=== PATIENT | male | born 1990 | race African-American/Black ===

== ENCOUNTER 2020-12-17 14:45 | Emergency (ER) | payer BC ==
[~2020-12-17] VITALS: Ht 172.7 cm; Wt 75.0 kg
[2020-12-17] MEDS ORDERED: KETOROLAC 60 MG/2 ML VIAL. IM ONE (16:15)
[2020-12-17] MEDS ORDERED: DEXAMETHASONE SOD PHOS 20 MG/5 ML VIAL. IM ONE (16:15)
--- NOTE | 2020-12-17 17:12 | PHYS DOC ---
Past Medical History Past Medical History: Migraines Past Surgical History: No Surgical History Smoking Status: Never Smoker Alcohol Use: Occasionally General Adult EDM: Chief Complaint: HEADACHE HPI: HPI: Patient is a 30 year old male who present to ER for evaluation of his typical migraine headache. Patient has history of migraine headache, he started having a headache for the last few days. Patient has been taking aspirin but not improved so he came here for evaluation. Patient denies any head injury, no neck pain, no nausea vomiting. Patient denies any fever, no neck stiffness. Patient denies any COVID-19 exposure. The headache is worse with loud noises or bright light. Review of Systems: Review of Systems: Constitutional: Denies fever or chills. [] Eyes: Denies change in visual acuity. [] HENT: Denies nasal congestion or sore throat. [] Respiratory: Denies cough or shortness of breath. [] Cardiovascular: Denies chest pain or edema. [] GI: Denies abdominal pain, nausea, vomiting, bloody stools or diarrhea. [] : Denies dysuria. [] Musculoskeletal: Denies back pain or joint pain. [] Integument: Denies rash. [] Neurologic: Positive headache, no focal weakness or sensory changes. [] Endocrine: Denies polyuria or polydipsia. [] Lymphatic: Denies swollen glands. [] Psychiatric: Denies depression or anxiety. [] Heart Score: C/O Chest Pain: N/A Risk Factors: Risk Factors: DM, Current or recent (<one month) smoker, HTN, HLP, family history of CAD, obesity. Risk Scores: Score 0 - 3: 2.5% MACE over next 6 weeks - Discharge Home Score 4 - 6: 20.3% MACE over next 6 weeks - Admit for Clinical Observation Score 7 - 10: 72.7% MACE over next 6 weeks - Early Invasive Strategies Current Medications: Current Medications Medications (Trade) Dose Ordered Sig/Omar Start Time Stop Time Status Last Admin Dose Admin Dexamethasone Sodium Phosphate (Decadron) 10 mg 1X ONCE 12/17/20 16:15 12/17/20 16:16 DC 12/17/20 16:09 10 MG Ketorolac Tromethamine (Toradol Im) 60 mg 1X ONCE 12/17/20 16:15 12/17/20 16:16 DC 12/17/20 16:09 60 MG Allergies: Allergies: Allergies Coded Allergies Type Severity Reaction Last Updated Verified No Known Drug Allergies 12/17/20 No Physical Exam: PE: Constitutional: Well developed, well nourished, no acute distress, non-toxic appearance. [] HENT: Normocephalic, atraumatic, bilateral external ears normal, oropharynx moist, no oral exudates, nose normal. [] Eyes: PERRLA, EOMI, conjunctiva normal, no discharge. [] Neck: Normal range of motion, no tenderness, supple, no stridor. [] Cardiovascular:Heart rate regular rhythm, no murmur [] Lungs & Thorax: Bilateral breath sounds clear to auscultation [] Abdomen: Bowel sounds normal, soft, no tenderness, no masses, no pulsatile masses. [] Skin: Warm, dry, no erythema, no rash. [] Back: No tenderness, no CVA tenderness. [] Extremities: No tenderness, no cyanosis, no clubbing, ROM intact, no edema. [] Neurologic: Alert and oriented X 3, normal motor function, normal sensory function, no focal deficits noted. [] Psychologic: Affect normal, judgement normal, mood normal. [] Current Patient Data: Vital Signs: Vital Signs Date Time Temp Pulse Resp B/P (MAP) Pulse Ox O2 Delivery O2 Flow Rate FiO2 12/17/20 14:50 98.6 84 16 163/89 (113) 95 Room Air 98.6 EKG: EKG: [] Radiology/Procedures: Radiology/Procedures: [] Course & Med Decision Making: Course & Med Decision Making Pertinent Labs and Imaging studies reviewed. (See chart for details) Patient is a 30-year-old male who present to ER due to headache, patient states this is his typical migraine headache. Patient given medication in the ER, he feels much better. Patient was discharged in stable condition. Dragon Disclaimer: Dragon Disclaimer: This electronic medical record was generated, in whole or in part, using a voice recognition dictation system. Departure Departure Impression: Primary Impression: Headache Disposition: 01 HOME / SELF CARE / HOMELESS Condition: IMPROVED Referrals: NO PCP (PCP) Follow up with your doctor next week. Patient Instructions: General Headache Without Cause Additional Instructions: Thank you for visiting our Emergency Department. We appreciate you trusting us with your care. If any additional problems come up don't hesitate to return to visit us. Please follow up with your primary care provider so they can plan additional care if needed and know about the problem that you had. If symptoms worsen come back to the Emergency Department. Any concerning symptoms that start such as chest pain, shortness of air, weakness or numbness on one side of the body, running high fevers or any other concerning symptoms return to the ER. DENIS PRADHAN DO Dec 17, 2020 17:12
[2020-12-17 17:33] VITALS: BP 138/84
== END 2020-12-17 17:33 | disposition home or self-care (01) ==
LOC: ER 14:45
DX: G43.909 Migraine, unspecified, not intractable, without status migrainosus (principal)
CPT/HCPCS: 96372; 99284; J1100; J1885

== ENCOUNTER 2021-02-15 20:08 | Emergency (ER) | payer SELFPAY ==
[~2021-02-15] VITALS: Ht 165.1 cm; Wt 80.0 kg
--- NOTE | 2021-02-15 22:39 | RAD ---
XR CHEST 1V INDICATION: cough . COMPARISON STUDY: None. FINDINGS: Lungs: Normal lung volume. No pulmonary mass or consolidation. The tracheobronchial tree and hilar st ructures are normal. Pleura: No pleural effusion or pneumothorax. Heart and Mediastinum: The cardiomediastinal silhouette is normal. The great vessels of the thorax ar e normal. Bones and Soft Tissues: The bones and soft tissues are within normal limits. IMPRESSION: No acute cardiopulmonary process. Electronically signed by: Konstantin Hutchinson MD (02/15/2021 10:37 PM) [facility]
--- NOTE | 2021-02-15 22:42 | PHYS DOC ---
Past Medical History Past Medical History: Migraines Past Surgical History: No Surgical History Smoking Status: Never Smoker Alcohol Use: None General Adult EDM: Chief Complaint: MULTIPLE COMPLAINTS HPI: HPI: Patient is a 30 year old male who presents to the ED today complaining of cough, nasal congestion, shortness of breath, body aches, symptoms began today. Patient denies any fever. Review of Systems: Review of Systems: Constitutional: Reports body aches. Denies fever or chills. [] Eyes: Denies change in visual acuity. [] HENT: Reports nasal congestion, denies sore throat Respiratory: Reports cough and shortness of breath Cardiovascular: Denies chest pain or edema. [] GI: Denies abdominal pain, nausea, vomiting, bloody stools or diarrhea. [] : Denies dysuria. [] Musculoskeletal: Denies back pain or joint pain. [] Integument: Denies rash. [] Neurologic: Denies headache, focal weakness or sensory changes. [] Psychiatric: Denies depression or anxiety. [] Heart Score: C/O Chest Pain: N/A Risk Factors: Risk Factors: DM, Current or recent (<one month) smoker, HTN, HLP, family history of CAD, obesity. Risk Scores: Score 0 - 3: 2.5% MACE over next 6 weeks - Discharge Home Score 4 - 6: 20.3% MACE over next 6 weeks - Admit for Clinical Observation Score 7 - 10: 72.7% MACE over next 6 weeks - Early Invasive Strategies Allergies: Allergies: Allergies Coded Allergies Type Severity Reaction Last Updated Verified No Known Drug Allergies 12/17/20 No Physical Exam: PE: Constitutional: Well developed, well nourished, no acute distress, non-toxic appearance. [] HENT: Normocephalic, atraumatic, bilateral external ears normal, oropharynx moist, no oral exudates, nose normal. [] Eyes: PERRLA, EOMI, conjunctiva normal, no discharge. [] Neck: Normal range of motion, no tenderness, supple, no stridor. [] Cardiovascular:Heart rate regular rhythm, no murmur [] Lungs & Thorax: Bilateral breath sounds clear to auscultation [] Abdomen: Bowel sounds normal, soft, no tenderness, no masses, no pulsatile masses. [] Skin: Warm, dry, no erythema, no rash. [] Back: No tenderness, no CVA tenderness. [] Extremities: No tenderness, no cyanosis, no clubbing, ROM intact, no edema. [] Neurologic: Alert and oriented X 3, normal motor function, normal sensory function, no focal deficits noted. [] Psychologic: Affect normal, judgement normal, mood normal. [] Current Patient Data: Labs: Laboratory Tests Test 02/15/21 21:10 SARS-CoV-2 Antigen (Rapid) Negative (NEGATIVE) Vital Signs: Vital Signs Date Time Temp Pulse Resp B/P (MAP) Pulse Ox O2 Delivery O2 Flow Rate FiO2 02/15/21 20:36 98.3 92 18 141/66 97 Room Air 98.3 EKG: EKG: [] Radiology/Procedures: Radiology/Procedures: []PROCEDURE: CHEST AP ONLY XR CHEST 1V INDICATION: cough . COMPARISON STUDY: None. FINDINGS: Lungs: Normal lung volume. No pulmonary mass or consolidation. The tracheobronchial tree and hilar structures are normal. Pleura: No pleural effusion or pneumothorax. Heart and Mediastinum: The cardiomediastinal silhouette is normal. The great vessels of the thorax are normal. Bones and Soft Tissues: The bones and soft tissues are within normal limits. IMPRESSION: No acute cardiopulmonary process. Electronically signed by: Amber Santoyo MD (02/15/2021 10:37 PM) [facility] DICTATED and SIGNED BY: AMBER SANTOYO MD DATE: 02/15/21 [id number] 0 Course & Med Decision Making: Course & Med Decision Making Pertinent Labs and Imaging studies reviewed. (See chart for details) This is a 30-year-old male patient presenting to the ED today with cough, shortness of breath, nasal congestion, symptoms began today. Negative Covid rapid test, negative chest x-ray. Discharge to home. Provided return precautions. Supportive care measures recommended Dragon Disclaimer: Dragon Disclaimer: This electronic medical record was generated, in whole or in part, using a voice recognition dictation system. Departure Departure Impression: Primary Impression: Cough Additional Impressions: Shortness of breath Body aches Upper respiratory infection Qualified Codes: J06.9 - Acute upper respiratory infection, unspecified Disposition: HOME / SELF CARE / HOMELESS Condition: STABLE Referrals: NO PCP (PCP) follow up with your doctor in one week Patient Instructions: Cough, Adult, [id number], Shortness of Breath, [id number], Upper Respiratory Infection, Adult, [id number] Additional Instructions: You were evaluated in the emergency room, your rapid Covid test is negative. You have a pending PCR Covid test. We will call you when results are available. Please quarantine yourself until you get results from us. Push fluids, take Tylenol Motrin for pain or fever. Maintain good hand hygiene. Please follow-up with your own doctor in 1 to 2 weeks. NIRAJ WONG APRN Feb 15, 2021 22:42
[2021-02-15 23:00] VITALS: BP 121/73
--- NOTE | 2021-02-16 15:57 | NUR ---
IP: Informed pt of negative covid test. Pt verbalized understanding.
== END 2021-02-15 23:00 | disposition home or self-care (01) ==
LOC: ER 20:08
DX: J06.9 Acute upper respiratory infection, unspecified (principal); G43.909 Migraine, unspecified, not intractable, without status migrainosus; Z20.822 Contact with and (suspected) exposure to COVID-19
CPT/HCPCS: 71045; 87426; 99284; U0003; U0005

== ENCOUNTER 2021-09-30 09:08 | Emergency (ER) | payer BC, OTHER ==
[~2021-09-30] VITALS: Ht 165.1 cm; Wt 84.2 kg
[2021-09-30] MEDS ORDERED: IBUPROFEN 100 MG/5 ML ORAL.SUSP. PO ONE (10:00)
[2021-09-30] MEDS ORDERED: DEXAMETHASONE SOD PHOS 20 MG/5 ML VIAL. IM ONE (10:00)
--- NOTE | 2021-09-30 10:14 | PHYS DOC ---
Past Medical History Past Medical History: Migraines Past Surgical History: No Surgical History Smoking Status: Never Smoker Alcohol Use: None General Adult EDM: Chief Complaint: SORE THROAT HPI: HPI: Patient is a 31-year-old male who presents emerged from complaint of sore throat with nasal stuffiness and cough for the past 2 days. Patient denies fever or chills, denies body aches, denies loss of taste or loss of smell. Patient reports he has taken [id number] DayQuil and NyQuil which seems to help some. Patient states he has been vaccinated for the COVID-19 virus, has not been vaccinated for the flu virus this season. States he needs a COVID-19 test that is negative to return back to work. Patient denies chest pain, denies shortness of breath, does report a dry cough, denies chest congestion. Patient denies ear pain. Patient denies abdominal discomfort, nausea, vomiting, diarrhea or constipation. Patient denies dizziness, syncopal or near syncopal episodes. Patient denies other physical complaints or physical concerns. Patient denies other people living in his home with similar symptoms. Review of Systems: Review of Systems: 14 body systems of review of systems have been reviewed. See HPI for pertinent positives and negative responses, otherwise all other systems are negative, nonpertinent or noncontributory. Constitutional: Negative except as outlined in HPI above. Skin: Negative except as outlined in HPI above. Eyes: Negative except as outlined in HPI above. HENT: Negative except as outlined in HPI above. Respiratory: Negative except as outlined in HPI above. Cardiovascular: Negative except as outlined in HPI above. GI: Negative except as outlined in HPI above. : Negative except as outlined in HPI above. Musculoskeletal: Negative except as outlined in HPI above. Integument: Negative except as outlined in HPI above. Neurologic: Negative except as outlined in HPI above. Endocrine: Negative except as outlined in HPI above. Lymphatic: Negative except as outlined in HPI above. Psychiatric: Negative except as outlined in HPI above. Heart Score: C/O Chest Pain: No Risk Factors: Risk Factors: DM, Current or recent (<one month) smoker, HTN, HLP, family history of CAD, obesity. Risk Scores: Score 0 - 3: 2.5% MACE over next 6 weeks - Discharge Home Score 4 - 6: 20.3% MACE over next 6 weeks - Admit for Clinical Observation Score 7 - 10: 72.7% MACE over next 6 weeks - Early Invasive Strategies Current Medications: Current Medications Medications (Trade) Dose Ordered Sig/Omar Start Time Stop Time Status Last Admin Dose Admin Dexamethasone Sodium Phosphate (Decadron) 10 mg 1X ONCE 09/30/21 10:00 09/30/21 10:01 UNV Ibuprofen (Children'S Motrin) 600 mg 1X ONCE 09/30/21 10:00 09/30/21 10:01 UNV Allergies: Allergies: Allergies Coded Allergies Type Severity Reaction Last Updated Verified No Known Drug Allergies 12/17/20 No Physical Exam: PE: Constitutional: Well developed, well nourished, no acute distress, non-toxic appearance. 31-year-old male in no apparent distress. HENT: Normocephalic, atraumatic. Oropharynx erythematous without uvular edema or deviation, there is no peritonsillar cobblestoning or exudative drainage, no laryngeal edema appreciated, patient is speaking in normal voice tones, there is no postnasal drip. Bilateral nasal turbinates boggy without drainage, bilateral TMs intact and within normal limits. There is no drooling, no trismus, patient speaking in normal voice tones Eyes: Conjunctiva normal, no discharge. Neck: Normal range of motion, no stridor. No nuchal rigidity, no meningismus signs. Cardiovascular: No cyanosis appreciated, distal cap refill less than 2 seconds. Regular rate and rhythm, heart sounds S1-S2 auscultation. Lungs & Thorax: Patient is in no respiratory distress, no audible adventitious lung sounds appreciated. Lung sounds are clear to auscultation all lung perez. Abdomen: Nontender, no abnormalities noted. Skin: Warm, dry, no erythema, no rash. Back: No tenderness, no deformities. Extremities: No tenderness, no cyanosis, no clubbing, ROM intact, no edema. Neurologic: Alert and oriented X 3, normal motor function, normal sensory function, no focal deficits noted. Psychologic: Affect normal, judgement normal, mood normal. Current Patient Data: Vital Signs: Vital Signs Date Time Temp Pulse Resp B/P (MAP) Pulse Ox O2 Delivery O2 Flow Rate FiO2 09/30/21 09:14 98.9 87 20 129/75 (93) 95 Room Air 98.9 EKG: EKG: [] Radiology/Procedures: Radiology/Procedures: [] Course & Med Decision Making: Course & Med Decision Making Pertinent Labs and Imaging studies reviewed. (See chart for details) 31-year-old male, vital signs reviewed, presents to the emergency department concerning sore throat with nasal stuffiness and difficulty sleeping at night for the past 2 days. Physical examination is consistent with viral pharyngitis. Low likelihood of strep for Centor score. Patient is asking for work excuse for today and tomorrow, reports needing a negative Covid test returned to work, will order rapid flu and COVID testing with Covid PCR, IM Decadron, p.o. ibuprofen. Upon reevaluation of patient, patient reports she is feeling better, rapid flu Covid testing are negative. PCR is pending. Discussed findings with patient, will give work excuse for today and tomorrow. This is a low likelihood of COVID-19 infection. Discussed with patient obtaining xddz-mce-vuxomjw ibuprofen for throat discomfort, hktc-cxr-umplfqx anesthetic throat spray for comfort, [id number] Zyrtec take at night for seasonal allergy component. Strict follow-up with primary care soon, patient reports he does not have a primary care doctor will provide a list of area clinics and healthcare providers. Return to ER precautions and concerns were discussed. Patient gave verbal understanding of and is amenable to ED discharge planning. Discussed with the patient all findings and diagnostic testing as well as the need to follow-up with their primary care provider for further evaluation and treatment or return to the ED if any new or worsening symptoms. Strict return precautions were also discussed at length, the patient voiced understanding and agreement with the discharge planning. The patient was nontoxic in appearance, in no apparent distress, and hemodynamically stable at the time of disposition. Dragon Disclaimer: Dragon Disclaimer: This electronic medical record was generated, in whole or in part, using a voice recognition dictation system. Departure Departure Impression: Primary Impression: Sore throat Disposition: HOME / SELF CARE / HOMELESS Condition: GOOD Referrals: NO PCP (PCP) Patient Instructions: Sore Throat Additional Instructions: You were seen today in the emergency department for sore throat for the past 2 days. This is most likely a viral sore throat. As we discussed this does not require an antibiotic. You were treated today with an intramuscular injection of Decadron which is a steroid to help with any throat discomfort and swelling. You were also treated with children's ibuprofen for throat pain. A rapid flu and rapid Covid test was performed today, they were both negative, there is Covid PCR pending in the lab, the results should be available in the next 48 hours. As we discussed please drink adequate fluids, you may consider obtaining children's ibuprofen to take for throat discomfort as this seems to relieve throat pain very well, you may also consider obtaining ugvt-tub-mvzbpth throat spray for throat discomfort, the red color seems to work best, please keep in the refrigerator as this adds to the soothing of sore throats. We also discussed [id number] Zyrtec, take at night prior to going to bed as this seems to help relieve symptoms while you sleep. Please follow-up with your primary care physician for further symptoms. I have added a list to this document of area healthcare providers and clinics, please choose 1 to establish primary care. Thank you for visiting our Emergency Department. It was a pleasure taking care of you today in the emergency department and we appreciate you trusting us with your care. If any additional problems come up don't hesitate to return to visit us. Please follow up with your primary care provider so they can plan additional care if needed and know about the problem that you had. If symptoms worsen come back to the Emergency Department. Any concerning symptoms that start such as chest pain, shortness of air, weakness or numbness on one side of the body, running high fevers or any other concerning symptoms return to the ER. You have been given a work excuse for today and tomorrow. [facility] [address] [place] [address] [facility] [address] [place] [address] [facility] [address] [place] [address] [facility] [address] [place] [address] [facility] [address] [place] [address] [facility] [address] [place] [address] [facility] [address] [place] [address] [facility] [address] [place] [address] [facility] [address] [place] [address] [facility] [address] [place] [address] TAYA LEON [employer] Sep 30, 2021 10:13
[2021-09-30 10:39] LABS: INFLUENZA A PATIENT NEGATIVE (NEGATIVE); INFLUENZA B PATIENT NEGATIVE (NEGATIVE)
[2021-09-30 10:48] VITALS: BP 130/81
== END 2021-09-30 10:50 | disposition home or self-care (01) ==
LOC: ER 09:08
DX: J02.9 Acute pharyngitis, unspecified (principal); Z20.822 Contact with and (suspected) exposure to COVID-19; G43.909 Migraine, unspecified, not intractable, without status migrainosus
CPT/HCPCS: 87428; 96372; 99283; C9803; J1100; U0003